=== PATIENT | female | born 1945 | race Caucasian/White ===

== ENCOUNTER 2024-04-04 20:02 | Emergency (ER) | payer OTHER ==
[~2024-04-04] VITALS: Ht 162.6 cm; Wt 60.0 kg
[2024-04-04 20:07] VITALS: O2SAT 99
[2024-04-04] MEDS: SODIUM CHLORIDE 0.9% 1000ML BAG (SEPSIS BOLUS) IV ONE (21:58)
[2024-04-04 22:02] LABS: BASOPHILS % 0.5 % (0.0-2.0); HEMATOCRIT. 39.1 % (36.0-48.0); HEMOGLOBIN. 12.8 g/dL (12.0-16.0); LYMPHOCYTES % 25.8 % (20.0-50.0); MEAN CORPUSCULAR HEMOGLOBIN 32.1 pg (28.0-32.0); MEAN CORPUSCULAR HGB CONC 32.6 g/dL (31.0-37.0); MEAN CORPUSCULAR VOLUME 98.3 fL (81.0-99.0); MEAN PLATELET VOLUME 8.3 fl (7.4-10.4); MONOCYTES % 4.8 % (2.0-8.0); NEUTROPHILS % 66.9 % (40.0-76.0); PLATELET 238 x1000/uL (130-400); RED BLOOD CELL COUNT 3.98 mill/uL (4.2-5.4); RED CELL DISTRIBUTION WIDTH 15.5 % (11.6-14.6); WHITE BLOOD COUNT 7.9 x1000/uL (4.5-11.0)
[2024-04-04] MEDS: CEFTRIAXONE 1GM/50ML 50 ML IV ONE (22:04)
[2024-04-04 22:08] LABS: CARBON DIOXIDE 27 mEq/L (21-32)
[2024-04-04 22:09] LABS: CALCIUM 9.7 mg/dL (8.7-10.4)
[2024-04-04 22:11] LABS: INR 0.9; PROTHROMBIN TIME 10.6 sec (9.6-11.0)
[2024-04-04 22:13] LABS: CREATININE 0.8 mg/dL (0.6-1.0)
[2024-04-04 22:14] LABS: GLUCOSE 106 mg/dL (70-105); TROPONIN I HIGH SENSITIVITY 9 ng/L (3.0-34); UREA NITROGEN BLOOD 17 mg/dL (9-23)
[2024-04-04 22:36] LABS: CHLORIDE 106 mEq/L (98-107); POTASSIUM 4.2 mEq/L (3.5-5.1); SODIUM 138 mEq/L (136-145)
[2024-04-05 00:15] VITALS: BP 138/83; PULSE 96; RESP 12; TEMP 37.11408; O2SAT 97
[2024-04-05 00:34] LABS: TROPONIN I HIGH SENSITIVITY 14 ng/L (3.0-34)
== END 2024-04-05 00:36 | disposition short-term general hospital (02) ==
LOC: ER 20:02 → EDBD 20:02 → ER 04-05 00:36
DX: I10 Essential (primary) hypertension (principal)
CPT/HCPCS: 99285; 96365; 71045; 80048; 83605; 85025; 85610; 87040; 84484; 36415; 84145; 93005; J0696; J7030